=== PATIENT | female | born 1985 | race Caucasian/White ===

== ENCOUNTER 2017-02-21 05:39 | Emergency (ER) | payer SELFPAY ==
--- NOTE | ~2017-02-21 | ER ---
PATIENT'S NAME: SHELBIE VIGIL [facility] AGE: 31 Y [address] ROOM: [place] [address] LOCATION: [facility] ADMIT DATE: 02/21/2017 ER/Outpatient Report DISCHARGE DATE: FAMILY PHYSICIAN: PHYSICIAN, NO ATTENDING PHYSICIAN: Sepideh Simon HISTORY OF PRESENT ILLNESS: This patient is a 31-year-old female, who presented to the emergency room with right foot pain, mainly involving the right great toe MP joint with red streaking up the foot into the ankle. A 2-day history of pain, swelling, inflammation. The patient was initially seen by Dr. Simon. See Dr. Simon's dictation in regard to the chief complaint, history of present illness, past medical history, and physical exam. Dr. Simon ordered lab studies and x-ray study of the right foot. She transferred the patient's care to me at shift change and asked me to follow up with the patient's laboratory and x-ray study results, final diagnosis, and treatment plan. The patient's white count was 9400 with a differential of 58 segs, 29 lymphs, 7 monos, 5 eos, 1 baso; hemoglobin was 13.6; hematocrit 41.5; platelet count was 334,000. Sedimentation rate was normal at 15. CMS was normal except for a low potassium of 3.1, elevated glucose 112, CRP was elevated at 1.56, quantitative hCG was negative less than 1.0. X-ray of the right foot showed no fracture, acute bone changes, joint changes or other abnormalities. We will review x-ray with Radiology. Did give the patient Toradol 60 mg IM in the emergency department for pain, [place] 5/325 two orally in the emergency room for pain, and Rocephin 1 g IM in the emergency room for pain. IMPRESSION: Cellulitis, right great toe with ascending lymphangitis. PLAN: The patient discharged from the emergency department. Observation. Activity as tolerated. Warm packs or warm soaks 20-30 minutes 3-4 times a day. Toradol 10 mg 1 every 6 hours x12 doses. [place] 7.5/325 one every 4 to 6 hours as needed for pain, #20. Bactrim Double Strength 1 orally b.i.d., #20. Follow up with personal physician in 5 to 7 days or sooner if needed. Discussion ensued with the patient concerning my findings and recommendations, she understands. BENJA ASTORGA MD PATIENT'S NAME: SHELBIE [facility] AGE: 31 Y [address] ROOM: [place] [address] LOCATION: [facility] ADMIT DATE: 02/21/2017 ER/Outpatient Report DISCHARGE DATE: FAMILY PHYSICIAN: PHYSICIAN, NO ATTENDING PHYSICIAN: Sepideh Simon/kevin /[id number] d: 02/21/17808 t: 02/22/17608, OUTPATIENT REPORT
--- NOTE | ~2017-02-21 | ER ---
[facility]GE[facility] 31 Y [address] ROOM: [place] [address] LOCATION: [facility] ADMIT DATE: 02/21/2017 ER/Outpatient Report DISCHARGE DATE: 02/21/2017 FAMILY PHYSICIAN: PHYSICIAN, NO ATTENDING PHYSICIAN: Sepideh Simon Time of Arrival: 0539 hours. Time Seen: 0547 hours. IDENTIFICATION: A 31-year-old female. CHIEF COMPLAINT: Right foot pain and swelling. HISTORY OF PRESENT ILLNESS: The patient has had right foot pain and swelling for 2 days. No other problems or concerns. She has redness on the medial aspect of her 1st MTP joint. No injury. She did buy some new flip-flops and had a little cracked lesion between her 1st and 2nd toe. No fever or chills. No systemic symptoms. ALLERGIES: NO KNOWN DRUG ALLERGIES. CURRENT MEDICATIONS: Ibuprofen. MEDICAL PROBLEMS: Denies. PRIOR SURGERIES: Denies. SOCIAL HISTORY: The patient lives here in [place]. Tobacco use, half pack per day. Alcohol use, denies. Drug use, denies. REVIEW OF SYSTEMS: All systems reviewed and negative other than what is noted in the HPI. PHYSICAL EXAMINATION: VITAL SIGNS: Height 5 feet 7 inches, weight 65.3 kg. Blood pressure 138/77, pulse 103, respirations 16, temperature 96.6, and saturations 96% on room air. GENERAL: A 31-year-old female, in mild to moderate distress. PATIENT'S NAME: MUSA [facility] AGE: 31 Y [address] ROOM: [place] [address] LOCATION: [facility] ADMIT DATE: 02/21/2017 ER/Outpatient Report DISCHARGE DATE: 02/21/2017 FAMILY PHYSICIAN: PHYSICIAN, NO ATTENDING PHYSICIAN: Sepideh Simon HEENT: Unremarkable. LUNGS: Clear to auscultation. HEART: Regular rate and rhythm. ABDOMEN: Soft, nondistended, nontender. SKIN: [place], warm, and dry. The patient has erythema at the medial aspect of her right MTP. Tender to palpation. There is not a lot of joint tenderness, but she is exquisitely tender over this area of redness. Good distal pulses. Sensation is intact. IMAGING: X-ray was ordered. LABORATORY DATA: Labs were ordered to include CBC, chemistry, sedimentation rate, CRP and a right foot x-ray as well as a serum . She said there could be a chance of . It is shift change and Dr. Hagan will assume care. MD CELESTINE GASCA/modedil /[id number] d: 02/22/17525 t: 02/23/17 0539, OUTPATIENT REPORT
[2017-02-21 06:15] LABS: BASOPHIL # 0.1 K/uL (0.0-0.2); BASOPHIL % 0.6 %; EOSINOPHIL # 0.5 K/uL (0.0-0.5); EOSINOPHIL % 5.1 %; HEMATOCRIT 41.5 % (33.0-46.0); HEMOGLOBIN 13.6 g/dL (11.0-15.0); IMMATURE GRANULOCYTE % 0.2 %; LYMPHOCYTE # 2.7 K/uL (0.8-4.0); LYMPHOCYTE % 29.1 %; MCH 29.9 pg (27.0-34.0); MCHC 32.8 gm/dL (32.0-36.5); MCV 91.2 fl (83.0-98.0); MONOCYTE # 0.6 K/uL (0.0-1.0); MONOCYTE % 6.8 %; MPV 10.3 fl (9.4-12.4); NEUTROPHIL # (ANC) 5.5 K/uL (1.8-7.8); NEUTROPHIL % 58.2 %; NRBC % 0 /100WBC (0-0.00); PLATELET COUNT 334 K/uL (150-450); RBC 4.55 M/uL (3.50-5.50); RDW-CV 12.5 % (11.9-14.6); WBC 9.4 K/uL (4.0-11.0)
[2017-02-21 06:29] LABS: ALBUMIN 4.1 gm/dL (3.5-5.0); ALK PHOS 66 IU/L (33-138); ALT 23 IU/L (12-78); ANION GAP 10.1 (10.0-19.0); AST 20 IU/L (10-40); BLOOD UREA NITROGEN 7 mg/dL (6-24); CALCIUM 9.1 mg/dL (8.5-10.5); CHLORIDE 105 mMol/L (96-110); CO2 30 mMol/L (22-32); CREATININE 0.8 mg/dL (0.5-1.1); ESTIMATED GFR (MDRD EQUATION) > 60; POTASSIUM 3.1 mMol/L (3.7-5.1); SODIUM 142 mMol/L (135-145); TOTAL BILIRUBIN 0.6 mg/dL (0.0-1.5); TOTAL PROTEIN 7.5 g/dL (6.0-8.4)
[2017-05-23] MEDS ORDERED: PERCOCET 5-3251 EACH PO (10:14)
[2017-05-23] MEDS ORDERED: DOXYCYCLINE100 MG PO (10:15)
== END 2017-02-21 07:50 | disposition disaster alternative care site (69) ==
LOC: GMED 05:39
PROVIDERS: Family Medicine
DX: L03.031 Cellulitis of right toe (principal); I89.1 Lymphangitis; F17.210 Nicotine dependence, cigarettes, uncomplicated; Z79.899 Other long term (current) drug therapy
CPT/HCPCS: J0696; J1885

== ENCOUNTER 2017-02-22 19:29 | Inpatient (IN) | payer SELFPAY ==
[~2017-02-22] VITALS: Ht 170.2 cm; Wt 65.0 kg
--- NOTE | ~2017-02-22 | ER ---
PATIENT'S NAME: VIGIL [facility] AGE: 31 Y [address] ROOM: [place] [address] LOCATION: [facility] ADMIT DATE: 02/22/2017 ER/Outpatient Report DISCHARGE DATE: FAMILY PHYSICIAN: PHYSICIAN, NO ATTENDING PHYSICIAN: KRYSTAL DUFFY V CHIEF COMPLAINT: Right foot cellulitis. TIME OF PATIENT ARRIVAL: 1929 hours. TIME OF PATIENT EVALUATION: 1942 hours. HISTORY OF PRESENT ILLNESS: This is a 31-year-old female who presents to the ER, who states that she was evaluated in the emergency room yesterday for cellulitis of her right foot. She states that she was given a shot of Rocephin, was started on Bactrim, was also sent home with some pain medication. She feels like the swelling and redness are much worse. She does not believe that she has been running any fevers at home. She also states that she has developed more of a blister area over the ball of her foot. She denies any other problems at this time. ALLERGIES: NO KNOWN ALLERGIES. MEDICATIONS: Please see medication list, nurse's notes. PAST MEDICAL HISTORY: Negative. PAST SURGERIES: None. SOCIAL HISTORY: Smokes half pack a day for last 15 years. Drinks alcohol occasionally. Does smoke marijuana. REVIEW OF SYSTEMS: A 10-point review of systems was completed and was negative with the exception of those discussed in the HPI. PHYSICAL EXAMINATION: PATIENT'S NAME: VIGIL [facility] AGE: 31 Y [address] ROOM: [place] [address] LOCATION: [facility] [place] ADMIT DATE: 02/22/2017 ER/Outpatient Report DISCHARGE DATE: FAMILY PHYSICIAN: PHYSICIAN, NO ATTENDING PHYSICIAN: KRYSTAL DUFFY V VITAL SIGNS: Height 5 feet 7 inches stated, weight 65.0 kg taken, blood pressure is 126/77, pulse 110, respirations 20, temperature 98.1 degrees tympanically, saturations 100% on room air. Skylar Coma Score is 15. GENERAL: Alert, calm, well-developed female, in no acute distress. HEENT: Head normocephalic. Eyes, pupils are equal and reactive to light. She does display moist mucous membranes. NECK: Supple. No lymphadenopathy. LUNGS: Clear to auscultation bilaterally. HEART: Regular rate and rhythm. ABDOMEN: Soft and nontender. Good bowel sounds throughout. EXTREMITIES: No clubbing or cyanosis. She does have full range of motion of all limbs; however, she does have exquisite tenderness over the ball of her right foot. She is unable to move her great toe on her right foot secondary to discomfort. SKIN: She has a large white-appearing collection, what appears to be a blister, over the plantar aspect of her right foot. It is quite tender to palpate. She does have erythema around that area. It does go around to the top of the foot and streaks up the anterior aspect of her hauser. It is warm to palpate. LABORATORY DATA: CBC: White count is 11.9, hemoglobin 13.3, platelets 286, potassium 3.0, BUN 5, creatinine 0.8. CRP is 0.98. Sedimentation rate is 23. IMAGING: X-ray of her right foot shows no fracture. No osteomyelitis noted. IMPRESSION: Right foot cellulitis with a blister-appearing fluid collection on the plantar portion of her foot. ASSESSMENT AND PLAN: Discussed the patient's care with Dr. Wood. Dr. Wood also evaluated the patient. We did start an IV here in the emergency room. We did get a blood culture as well. I did order vancomycin, pharmacy to dose based off her weight, and we also gave her 2 Percocet p.o. for her pain. The patient does not have a primary care physician, therefore, I called Dr. Duffy, who is on- call for the Hospitalist Service, and he will be admitting the patient for further care. The patient understands and agrees with care. SAJAN SHIELDS PA-C FOR CESAR WOOD MD PATIENT'S NAME: SHELBIE VIGIL [facility] AGE: 31 Y [address] ROOM: [address] [place] [id number] LOCATION: [facility] [place] ADMIT DATE: 02/22/2017 ER/Outpatient Report DISCHARGE DATE: FAMILY PHYSICIAN: PHYSICIAN, NO ATTENDING PHYSICIAN: KRYSTAL DUFFY/kevin /[id number] d: 02/23/17 1424 t: 03/05/17 0630, OUTPATIENT REPORT
--- NOTE | ~2017-02-22 | OR ---
PATIENT'S NAME: SHELBIE LINDO [facility] AGE: 31 Y [address] ROOM: [place] [id number] LOCATION: [facility] [place] ADMIT DATE: 02/23/2017 OR/Procedure Report DISCHARGE DATE: 02/26/2017 FAMILY PHYSICIAN: PHYSICIAN, MAGDA ATTENDING PHYSICIAN: KRYSTAL DUFFY V SURGEON: Vaughn Haddad MD FURNACE ROASTER: Brandon Graham PA-C. DATE OF PROCEDURE: 02/23/2017 Corrected procedure per physician 03/24/17 AO PREOPERATIVE DIAGNOSES: 1. Right foot abscess at the first metatarsophalangeal joint. 2. Right first metatarsophalangeal joint septic arthritis. POSTOPERATIVE DIAGNOSES: 1. Right foot abscess at the first metatarsophalangeal joint. 2. Right first metatarsophalangeal joint septic arthritis. PROCEDURES: 1. Irrigation and debridement of right foot abscess including skin subcutaneous tissue, muscle, fascia, 6x6 cm. 2. Irrigation and debridement of right first metatarsophalangeal joint septic arthritis. ANESTHESIA: General endotracheal anesthesia. FLUIDS: See Anesthesia report. ESTIMATED BLOOD LOSS: Minimal. TOURNIQUET: Right proximal thigh 250 mmHg. SPECIMENS: Cultures, right foot abscess and first metatarsophalangeal joint. COMPLICATIONS: None. DISPOSITION: Stable in PACU. COUNTS: All counts correct. INDICATIONS: Ms. Lindo is a pleasant 31-year-old female, who underwent the noted procedures above. The risks, benefits, and alternatives of pursuing surgical intervention with the patient were discussed and the patient elected to proceed with surgery. Anesthesia was consulted for their perioperative evaluation of the patient. I marked the right lower extremity indicating the correct surgical site. PATIENT'S NAME: SHELBIE LINDO [facility] AGE: 31 Y [address] ROOM: [address] [address] LOCATION: [facility] [place] ADMIT DATE: 02/23/2017 OR/Procedure Report DISCHARGE DATE: 02/26/2017 FAMILY PHYSICIAN: PHYSICIAN, NO ATTENDING PHYSICIAN: KRYSTAL DUFFY V DESCRIPTION OF PROCEDURE: The patient was taken to the holding area in the operative room. Time-out was performed. General endotracheal anesthesia was administered. Antibiotics were not currently being administered by the hospitalist. The right lower extremity was then prepped and draped in a sterile fashion . I turned my attention to the right foot and an Esmarch was used to exsanguinate the limb. The tourniquet was inflated to 250 mmHg. I turned my attention to the medial aspect of the right foot at the level of metatarsophalangeal joint. There appeared to be an abscess. I used a 15 blade knife and made a longitudinal incision over the medial aspect of the first metatarsophalangeal joint. There was purulence after opening the wound. There was sloughing of the superficial tissue as well. I took cultures of the abscess and also the first metatarsophalangeal joint. I performed a thorough debridement of the abscess and removed a fair amount of this sloughed surrounding tissue. I incised the joint capsule of the first metatarsophalangeal joint and found purulence and took a specimen of this and sent it to the lab for analysis. A 3 L of normal sterile saline solution via pulsatile lavage were placed in the wound. A layered closure began with 0 Vicryl suture to approximate the capsule followed by 2-0 nylon suture in an interrupted horizontal mattress fashion to approximate the skin. Sterile dressings were placed in the form of Xeroform, followed by 4x4, Webril, and an Arias bandage. The patient was then transferred from the operating table on the stretcher and extubated. She was brought to the recovery room in stable condition. There were no intraoperative complications noted. Of note, my PA, Brandon Graham PA-C, played an integral role in the intraoperative care of this patient. This included preoperative positioning, intraoperative expert retraction, and closing and dressing functions. IMPRESSION: The patient is status post noted procedure above. PLAN: The patient will be nonweightbearing on the right lower extremity with assistance of crutches or a scooter. The patient will continue to rest, ice, and elevate the leg. We will continue with the IV antibiotics. The hospitalist will continue to manage the patient's concomitant medical comorbidities. Physical Therapy and Occupational Therapy may be consulted for early ambulation and prevention of deconditioning. We will follow up the intraoperative cultures. We will let the request of Infectious Disease see the PATIENT'S NAME: SHELBIE LINDO [facility] AGE: 31 Y [address] ROOM: [place] [address] LOCATION: [facility] ADMIT DATE: 02/23/2017 OR/Procedure Report DISCHARGE DATE: 02/26/2017 FAMILY PHYSICIAN: , MAGDA ATTENDING PHYSICIAN: KRYSTAL DUFFY V patient when they are available to do so. I will continue to monitor the patient closely in the postoperative period. MD JOSEPH WOLF/modl /[id number] Corrected procedure per physician 03/24/17 AO d: 02/24/17 0126 t: 03/29/17 1703, OPERATIVE SUMMARY
--- NOTE | ~2017-02-22 | HP ---
[facility]GE[facility] 31 Y [address] ROOM: [place] [address] [place] [facility] [place] ADMIT DATE: 02/22/2017 History & Physical DISCHARGE DATE: FAMILY PHYSICIAN: PHYSICIAN, NO ATTENDING PHYSICIAN: KRYSTAL DUFFY V DATE OF SERVICE: CHIEF COMPLAINT: Foot swelling. HISTORY OF PRESENT ILLNESS: The patient is a previously healthy 31-year-old female who initially presented to the ER yesterday with swelling along the medial side of her 1st metatarsophalangeal joint along with surrounding erythema and pain. She was diagnosed with cellulitis of the foot, started on Bactrim and [place], and sent home. Today, she returns back to the ER with complaints of now an almost a bullous like fluid collection at the plantar aspect overlying the 1st metatarsophalangeal joint, which is quite tender, and has associated erythema and warmth around it. She denies any systemic complaints such as fever, chills, nausea, vomiting, chest pain, shortness of breath, diaphoresis, or palpitations. The fluid collection however was extremely tender and the patient is appearing in pain. REVIEW OF SYSTEMS: All systems have been reviewed and negative aside from pertinent positives mentioned above. PAST MEDICAL HISTORY: The patient denies. PAST SURGICAL HISTORY: The patient denies. FAMILY HISTORY: The patient denies any relevant pertinent family history. SOCIAL HISTORY: She does smoke cigarettes, but denies any other toxic habits. No toxic exposures. PHYSICAL EXAMINATION: VITAL SIGNS: Temperature 97.9, pulse is 98, respirations 16, blood pressure 121/75, and saturating 98% on room air. PATIENT'S NAME: MUSA [facility] AGE: 31 Y [address] ROOM: [place] [id number] LOCATION: [facility] [place] ADMIT DATE: 02/22/2017 History & Physical DISCHARGE DATE: FAMILY PHYSICIAN: PHYSICIAN, NO ATTENDING PHYSICIAN: KRYSTAL DUFFY V GENERAL: Appears as a well-developed, well-nourished young female, in mild-to- moderate distress due to the pain. NEUROLOGICAL: Exam is nonfocal. EYES: Extraocular movements are intact. LYMPHATIC: Exam shows no cervical lymphadenopathy. ENDOCRINE: Exam shows no thyromegaly. LUNGS: Clear to auscultation. HEART: Rate is regular. ABDOMEN: Soft. There seems to be preserved range of motion in her 1st MTP joint. There is however a large discolored collection in her plantar aspect of the foot, which causes her great pain and tenderness. LABORATORY DATA: Lab results show potassium of 3.0. White count 11.9 without bandemia. ESR is 23. X-rays from 3 days ago demonstrate bipartite sesamoid at the 1st MTP joint space and some subcutaneous soft tissue swelling subjacent to the 1st MTP joint of uncertain significance. ASSESSMENT AND PLAN: This is a 31-year-old female presenting with some cellulitis, but also an unclear fluid collection in her foot. I do not think that this is gout as the fluid collections are not really inside the joint. We will obtain an MRI and consider a Podiatry versus Foot and Ankle consultation in the morning once the MRI is available. The patient was started on vancomycin in the ER for a presumed cellulitis and we will add a probiotic. We will also provide her with pain control. Additional management will depend on clinical course. Time dedicated to this patient encounter is 25 minutes. MD ISABELLE CONN/kevin /[id number] D: [id number] T: 020 HISTORY & PHYSICAL
--- NOTE | ~2017-02-22 | CON ---
[facility]GE[facility] 31 Y [address] ROOM: [place] [address] LOCATION: [facility] ADMIT DATE: 02/22/2017 Consultation DISCHARGE DATE: FAMILY PHYSICIAN: , MAGDA ATTENDING PHYSICIAN: Amaury Mcbride V DATE OF CONSULTATION: 02/23/2017 REFERRING PHYSICIAN: Vaughn Haddad MD CHIEF COMPLAINT: Right great toe pain. HISTORY OF PRESENT ILLNESS: Ms. Lindo is a pleasant 31-year-old female who presented to the ER yesterday, 02/22/2017, with swelling on the medial side of her first metatarsophalangeal joint with surrounding erythema and pain. She was diagnosed with cellulitis by the ER doctor, given Chama for pain, Bactrim for present antibiotic, and sent home. She returned today to the emergency room on 02/23/2017 with increasing pain and blistering of the great toe. She reports it is quite tender. Aggravating factors include standing, walking, attempting to bear weight. Alleviating factors include resting, icing, and elevating. Currently, the patient denies any constitutional symptoms such as fever, chills, or night sweats. She also denies any dizziness, chest pain, shortness of breath, blurred vision, nausea, vomiting, or diarrhea. Her primary concern today is her right foot. PAST MEDICAL HISTORY: None. PAST SURGICAL HISTORY: None. FAMILY HISTORY: Not relevant. SOCIAL HISTORY: She denies any alcohol, tobacco, or illicit drug use. CURRENT MEDICATIONS: 1. Florastor. 2. Vancomycin. 3. Lidocaine. 4. Percocet. 5. Tylenol. PATIENT'S NAME: SHELBIE LINDO [facility] AGE: 31 Y [address] ROOM: [place] [id number] LOCATION: [facility] ADMIT DATE: 02/22/2017 Consultation DISCHARGE DATE: FAMILY PHYSICIAN: PHYSICIAN, NO ATTENDING PHYSICIAN: Amaury Mcbride V PHYSICAL EXAMINATION: VITAL SIGNS: Temperature 98, respiratory rate of 16, heart rate of 78, and blood pressure 107/86. HEENT: Normocephalic and atraumatic. Extraocular movements are intact. PERRLA. Moist mucous membranes. Oropharyngeal airway is clear. NECK: Supple. Trachea is in midline. CARDIOVASCULAR: Regular rate and rhythm. CHEST: Normal and symmetric respirations observed bilaterally. ABDOMEN: Soft, nontender, and nondistended. PELVIS: Stable. MUSCULOSKELETAL: Right Lower Extremity: Focal examination of the right lower extremity reveals the patient is grossly neurologically intact distally. There is a pronounced swelling and blistering of the first metatarsophalangeal joint. There appears to be a surrounding erythema present. There appears to be pain with range of range of motion of the first MTP joint. There appears to be evidence of a previous crack in the skin in the first webspace, and the patient reports that her sandal caused a skin blister that has gone on to soft. Compartments of the thigh, leg, and foot are soft. There are palpable dorsalis pedal and posterior tibial pulses. There is good capillary refill in the toes. The skin is otherwise intact circumferentially. There is fluctuance at the first MTP joint. IMAGING: Plain radiographs of the foot appeared to be within lower limits despite the fact there is swelling. An MRI was performed. There appears to be evidence of a focal collection versus abscess at the first metatarsophalangeal joint at the level of the great toe. LABORATORY VALUES: Include a CBC with hemoglobin of 13.3, hematocrit of 40.4, white blood cell count of 11.9, and platelet count of 286. Blood cultures are currently negative. CRP is 8.98. ESR is 15. Beta-HCG is negative. IMPRESSION: Right foot abscess. PLAN: I had a long discussion with the patient today regarding her right foot. She appears to have formed an abscess. I believe the patient has an abscess in the right foot. I am recommending irrigation and debridement of the right foot abscess. I have discussed the risks, benefits, and alternatives of pursuing a surgical intervention with the patient in detail. I discussed the PATIENT'S NAME: SHELBIE LINDO [facility] AGE: 31 Y [address] ROOM: [address] [address] LOCATION: [facility] ADMIT DATE: 02/22/2017 Consultation DISCHARGE DATE: FAMILY PHYSICIAN: PHYSICIAN, NO ATTENDING PHYSICIAN: Amaury Mcbride V risks of anesthesia, infection, bleeding, and/or injury to neurovascular structures. She expressed understanding of this. Informed consent was obtained, the patient elected to proceed with surgery. The patient will be nonweightbearing for a period of 2 weeks. They may continue antibiotics for now as they have already been continued up until this point. Pain control may be per the primary team. We will plan for surgery as soon as this evening. MD JOSEPH WOLF/kevin /[id number] d: 02/23/17 2357 t: 02/27/17 0830, CONSULTATION REPORT
--- NOTE | ~2017-02-22 | CON ---
[facility] 31 Y [address] ROOM: [place] [address] LOCATION: [facility] ADMIT DATE: 02/23/2017 Consultation DISCHARGE DATE: 02/26/2017 FAMILY PHYSICIAN: PHYSICIAN, NO ATTENDING PHYSICIAN: Amaury Mcbride V DATE OF CONSULTATION: 02/24/2017 REFERRING PHYSICIAN: Vaughn Haddad MD REFERRING PHYSICIAN: Brandon Graham PA-C REASON FOR VISIT: Right foot wound. HISTORY OF PRESENT ILLNESS: This is a 31-year-old female patient, who was admitted to [facility] with right foot cellulitis. No past medical history noted. On 02/23/2017, the patient underwent a right foot I and D secondary to abscess with a right first metatarsal phalangeal joint septic arthritis I and D. Xeroform is currently applied to the site. Briefly prior to admission, the patient was on Bactrim for foot cellulitis, however, noted increasing pain and erythema, so presents to the ER for further care. Currently, she denies fever, chills, or sweats. She does admit to pain and is crying at times during the dressing change. She denies chest pain. She admits that she is normally healthy. PAST MEDICAL HISTORY: Denies. PAST SURGICAL HISTORY: [place] teeth extraction. FAMILY HISTORY: Father suffers from atrial fibrillation. SOCIAL HISTORY: The patient lives in [place]. She works in [employer]. She currently smokes a pack of cigarettes per day. She reports rare amount of marijuana use. She denies alcohol use. ALLERGIES: NO KNOWN DRUG ALLERGIES. CURRENT MEDICATIONS: PATIENT'S NAME: [facility] AGE: 31 Y [address] ROOM: [place] [address] LOCATION: [facility] ADMIT DATE: 02/23/2017 Consultation DISCHARGE DATE: 02/26/2017 FAMILY PHYSICIAN: PHYSICIAN, NO ATTENDING PHYSICIAN: Amaury Mcbride V Please refer to medication administration record. REVIEW OF SYSTEMS: All are negative except as mentioned above in the HPI. PHYSICAL EXAMINATION: VITAL SIGNS: Temperature 98.6, pulse 81, respirations 14, blood pressure 115/63, SaO2 94% on room air, height 5 feet 7 inches, weight 65.0 kg. GENERAL: The patient is alert, anxious. HEENT: Head: Normocephalic, atraumatic. NEUROLOGICAL: Grossly nonfocal. Intact sensation. EXTREMITIES: +2 pedal pulses. No edema noted. Extremely warm to touch. Unable to assess capillary refill due to toenail estonian. SKIN: To the patient's right medial great toe/foot, she has intact sutures. Redness noted to periwound with granulation tissue. The area that probes about 0.5 cm around the first metatarsal head. No purulent exudate. Small amount of serosanguineous exudate. LABORATORY DATA: Wound culture is pending. White blood cell count 10, hemoglobin 10.8, hematocrit 33.8, platelets 263. Sodium 141, potassium 4.2, chloride 107, bicarb 29, BUN 13, creatinine 0.8, glucose 92. ASSESSMENT AND PLAN: Again, this is a 31-year-old female patient, who is admitted to [facility] with right foot cellulitis. She is status post I and D. 1. Right foot abscess, status post I and D. Periwound is approximated with sutures. The rest appears granular, and there is a small area by the right first metatarsal head area left open for drainage per CHIQUI Escobedo. We will continue with sterile foam dressing changes. I instructed nursing to apply skin prep barrier to the periwound prior to application to prevent periwound maceration. Nursing is to then wrap with a bulky gauze and change daily and p.r.n. saturation. We will continue to follow. ID is being consulted. The patient is currently on IV antibiotic therapy. The patient is on oxycodone for pain. I would like to thank CHIQUI Escobedo, for this consultation. FATEMEH SEVILLA APRN FOR MD LUIS HIRSCH/kevin PATIENT'S NAME: SHELBIE VIGIL [facility] AGE: 31 Y [address] ROOM: [place] [address] LOCATION: [facility] ADMIT DATE: 02/23/2017 Consultation DISCHARGE DATE: 02/26/2017 FAMILY PHYSICIAN: MAGDA HAQUE ATTENDING PHYSICIAN: Amaury Mcbride V /[id number] d: 02/24/172224 t: 03/01/17 0941, CONSULTATION REPORT
--- NOTE | ~2017-02-22 | DS ---
PATIENT'S NAME: SHELBIE VIGIL [facility] AGE: 31 Y [address] ROOM: [address] [address] LOCATION: [facility] ADMIT DATE: 02/23/2017 Discharge Summary DISCHARGE DATE: 02/26/2017 FAMILY PHYSICIAN: PHYSICIAN, NO ATTENDING PHYSICIAN: Amaury Mcbride V PRINCIPAL DIAGNOSIS: Right foot abscess, MRSA cellulitis. BRIEF HOSPITAL COURSE: This is a 31-year-old female who presented with right leg swelling and pain and on evaluation was found to have an abscess collection near the right MTP joint area. The patient had an MRI of her leg done, which showed an abscess collection in the right foot; however, did not show any signs of joint space involvement or osteomyelitis. The patient was evaluated and seen by Dr. Haddad who did an I and D of the abscess. Wound cultures are growing MRSA. The patient during hospitalization was treated with broad-spectrum antibiotics including vancomycin. Looking at the sensitivity, we will discharge the patient on 7 more days of doxycycline, which should cover her MRSA abscess. She will follow up with Dr. Haddad next week and she is to do daily dressing changes and is to be nonweightbearing until followup with the Ortho. PHYSICAL EXAMINATION: VITAL SIGNS: The patient is afebrile, vital signs stable. CHEST: Clear to auscultation bilaterally. HEART: S1, S2. Regular rate and rhythm. ABDOMEN: Soft, nontender, nondistended. EXTREMITIES: Right foot in [place] wraps. DISPOSITION: Home with followup with Ortho in 3-5 days. MEDICATIONS: Per MAR including doxycycline 100 mg b.i.d. for 7 more days. Less than 30 minutes were spent in discharge planning and facilitating. MD VICTOR M BELL/kevin /[id number] d: 02/27/17 0242 t: 02/27/17 1202, DISCHARGE SUMMARY
[2017-02-22 20:26] LABS: BASOPHIL % 0.2 %; EOSINOPHIL # 0.4 K/uL (0.0-0.5); EOSINOPHIL % 3.4 %; HEMATOCRIT 40.4 % (33.0-46.0); HEMOGLOBIN 13.3 g/dL (11.0-15.0); IMMATURE GRANULOCYTE % 0.3 %; LYMPHOCYTE # 1.7 K/uL (0.8-4.0); LYMPHOCYTE % 14.4 %; MCHC 32.9 gm/dL (32.0-36.5); MONOCYTE # 0.6 K/uL (0.0-1.0); MONOCYTE % 5.2 %; MPV 10.3 fl (9.4-12.4); NEUTROPHIL # (ANC) 9.1 K/uL (1.8-7.8); NEUTROPHIL % 76.5 %; NRBC % 0 /100WBC (0-0.00); PLATELET COUNT 286 K/uL (150-450); RBC 4.44 M/uL (3.50-5.50); RDW-CV 12.4 % (11.9-14.6); WBC 11.9 K/uL (4.0-11.0)
[2017-02-22 21:14] LABS: ALBUMIN 3.8 gm/dL (3.5-5.0); ALK PHOS 67 IU/L (33-138); ALT 22 IU/L (12-78); AST 17 IU/L (10-40); BLOOD UREA NITROGEN 5 mg/dL (6-24); CALCIUM 8.9 mg/dL (8.5-10.5); CHLORIDE 104 mMol/L (96-110); CO2 31 mMol/L (22-32); CREATININE 0.8 mg/dL (0.5-1.1); ESTIMATED GFR (MDRD EQUATION) > 60; SODIUM 140 mMol/L (135-145); TOTAL PROTEIN 7.5 g/dL (6.0-8.4)
[2017-02-22 21:15] LABS: TOTAL BILIRUBIN 0.4 mg/dL (0.0-1.5)
[2017-02-23 21:36] LABS: CALCIUM 8.8 mg/dL (8.5-10.5); CHLORIDE 107 mMol/L (96-110); CO2 29 mMol/L (22-32); CREATININE 0.8 mg/dL (0.5-1.1); ESTIMATED GFR (MDRD EQUATION) > 60; SODIUM 141 mMol/L (135-145)
[2017-02-23 21:37] LABS: ANION GAP 9.2 (10.0-19.0); BLOOD UREA NITROGEN 13 mg/dL (6-24); POTASSIUM 4.2 mMol/L (3.7-5.1)
[2017-02-24 05:31] LABS: BASOPHIL % 0.3 %; EOSINOPHIL # 0.5 K/uL (0.0-0.5); EOSINOPHIL % 4.7 %; HEMATOCRIT 33.8 % (33.0-46.0); HEMOGLOBIN 10.8 g/dL (11.0-15.0); IMMATURE GRANULOCYTE % 0.2 %; LYMPHOCYTE # 2.9 K/uL (0.8-4.0); LYMPHOCYTE % 28.5 %; MCH 29.8 pg (27.0-34.0); MCV 93.4 fl (83.0-98.0); MONOCYTE # 0.9 K/uL (0.0-1.0); MONOCYTE % 8.8 %; MPV 10.3 fl (9.4-12.4); NEUTROPHIL # (ANC) 5.8 K/uL (1.8-7.8); NEUTROPHIL % 57.5 %; NRBC % 0 /100WBC (0-0.00); PLATELET COUNT 263 K/uL (150-450); RBC 3.62 M/uL (3.50-5.50); RDW-CV 12.4 % (11.9-14.6)
[2017-02-26] MEDS ORDERED: ULTRAM50 MG PO (17:15)
[2017-02-26] MEDS ORDERED: DOXY 100100 MG PO (17:15)
[2017-05-23] MEDS ORDERED: PERCOCET 5-3251 EACH PO (10:14)
[2017-05-23] MEDS ORDERED: DOXYCYCLINE100 MG PO (10:15)
== END 2017-02-26 19:00 | disposition disaster alternative care site (69) | DRG 504 ==
LOC: GMED 19:29 → GMSU 22:05
PROVIDERS: Physician Assistant Medical; ADMIT Internal Medicine
PROC: 0SBM0ZZ Excision of Right Metatarsal-Phalangeal Joint, Open Approach (ICD-10-PCS; principal; 2017-02-23)
DX: M00.071 Staphylococcal arthritis, right ankle and foot (principal); L02.611 Cutaneous abscess of right foot; F17.210 Nicotine dependence, cigarettes, uncomplicated; E87.6 Hypokalemia; B95.62 Methicillin resistant Staphylococcus aureus infection as the cause of diseases classified elsewhere
CPT/HCPCS: J0690; J1170; J2270; J2543; J3010; J3370; J3480; J7050; J7120